=== PATIENT | female | born 1965 | race Caucasian/White ===

== ENCOUNTER 2020-10-24 09:40 | Day surgery (SDC) | payer MEDICARE ==
[2020-10-24] MEDS ORDERED: Acetaminophen 500 MG TAB ONE (09:44)
[2020-10-24] MEDS ORDERED: diphenhydrAMINE 50 MG/ML VIAL ONE (09:45)
[2020-10-24] MEDS ORDERED: BAMLANIVIMAB 700 MG, ETESEVIMAB 700 MG/20 ML 1,400 MG in Sodium Chloride 0.9% 250 ML 25... IVPB SCH (10:00)
== END 2020-10-24 12:20 | disposition home or self-care (01) ==
LOC: CSHSDC 09:40
PROVIDERS: ATTEND Family Medicine
DX: U07.1 COVID-19 (principal); Z23 Encounter for immunization
CPT/HCPCS: M0239; Q0239; J1200; J7050; Q0245

== ENCOUNTER 2021-02-26 15:25 | Inpatient (IN) | payer MEDICARE ==
[2021-02-26 16:46] LABS: #Eosinphils 0.3 10x3/uL (0.0-0.5); #Monocytes 0.6 10x3/uL (0.0-1.1); #Neutrophils 4.7 10x3/uL (1.5-8.4); %Basophils 0.6 % (0.0-2.0); %Eosinophils 4.3 % (0.0-6.0); %Lymphocytes 17.2 % (18.0-47.0); %Monocytes 8.3 % (0.0-10.0); %Neutrophils 69.5 % (40.0-75.0); Hemoglobin 9.3 g/dL (12.0-15.5); Mean Corpuscular HGB CONC 33.2 g/dL (32.0-36.0); Mean Corpuscular Hemoglobin 31.7 pg (27.0-33.0); Mean Corpuscular Volume 95.6 fl (81.6-98.3); Mean Platelet Volume 10.8 fl (7.4-10.4); Platelet Count 218 10x3/uL (150-450); RBC Distribution Width 12.8 % (11.5-14.5); Red Blood Cell (RBC) Count 2.93 10x6/uL (3.90-5.03); White Blood Cell (WBC) Count 6.8 10x3/uL (3.5-10.5)
[2021-02-26 16:47] LABS: PTT 24.8 sec (22.0-33.0); Prothrombin Time 10.8 sec (9.5-12.1)
[2021-02-26 16:52] LABS: ALT (SGPT) 14 U/L (8-55); AST (SGOT) 30 U/L (5-34); Albumin 3.4 g/dL (3.5-5.0); Alkaline Phosphatase 56 U/L (40-110); Anion Gap 13 mmol/L (10-20); BUN (Urea Nitrogen) 19 mg/dL (9.8-20.1); Bilirubin, Total 0.3 mg/dL (0.2-1.2); Calc. Creatinine Clearance 0 mL/min (70-130); Carbon Dioxide 27 mmol/L (22-29); Chloride 95 mmol/L (98-107); Globulin 4.3 g/dL (2.4-3.5); Glucose 529 mg/dL (70-105); Potassium 4.3 mmol/L (3.5-5.1); Protein, Total 7.7 g/dL (6.0-8.3); Sodium 131 mmol/L (136-145)
[2021-02-26 17:07] LABS: Bilirubin Neg (Negative); Blood, Urine 25 (Negative); Clarity Cloudy (Clear); Glucose, Urine (Dipstick) >=1000 mg/dL (Negative); Ketone, Urine Negative (Negative); Leukocyte 500 (Negative); Nitrite Negative (Negative); Protein, Urine (Dipstick) 30 mg/dl (Neg-Trace); Urobilinogen Normal mg/dL (Less than 2)
[2021-02-26] MEDS ORDERED: Cefepime 2 GM VIAL ONE ×2 (17:16)
[2021-02-26 17:19] LABS: Bacteria/HPF 4+ HPF (None Seen); RBC/HPF 0-3 HPF (0-3)
[2021-02-26] MEDS ORDERED: Ketorolac Tromethamine 30 MG/ML VIAL ONE (17:26)
[2021-02-26] MEDS ORDERED: Acetaminophen 325 MG TAB PO PRN ×2 (17:58→21:28)
[2021-02-26] MEDS ORDERED: Senokot S 8.6-50 MG TAB PO PRN (17:58)
[2021-02-26] MEDS ORDERED: Insulin Regular 300 UNITS/3 ML VIAL ONE (18:13)
[2021-02-26] MEDS ORDERED: Vancomycin HCl 2 GM, Admixture Fee 1 EACH in Sodium Chloride 0.9% 500 ML IVPB SCH (18:15)
[2021-02-26] MEDS ORDERED: Sodium Chloride 0.9% 1,000 ML IV SCH (19:00)
[2021-02-26] MEDS ORDERED: Vancomycin 1.5 GRAM/300 ML BAG 1.5 GM in Premix Bag 1 BAG IVPB SCH (21:00)
[2021-02-26] MEDS ORDERED: Dextrose 50% Abboject 50 ML SYRINGE SLOW IVP PRN (21:37)
[2021-02-26] MEDS ORDERED: Dextrose 5% in Water 1,000 ML IV PRN (21:37)
[2021-02-26] MEDS ORDERED: Morphine 4 MG/ML VIAL SLOW IVP SCH (22:00)
[2021-02-26] MEDS: Famotidine 20 MG TAB PO SCH (22:47)
[2021-02-26] MEDS: Ondansetron PF 4 MG/2 ML Vial IVP PRN (23:16)
[2021-02-26] MEDS: HumaLOG 300 UNITS/3 ML VIAL SC PRN (23:21)
[2021-02-27] MEDS: DULoxetine 30 MG CAP PO SCH ×2 (01:53→02:22)
[2021-02-27] MEDS: traMADol HCl 50 MG TAB PO PRN ×2 (01:53→02:22)
[2021-02-27 05:17] LABS: Anion Gap 12 mmol/L (10-20); BUN (Urea Nitrogen) 20 mg/dL (9.8-20.1); Calc. Creatinine Clearance 86 mL/min (70-130); Calcium 8.6 mg/dL (7.8-10.44); Carbon Dioxide 26 mmol/L (22-29); Chloride 100 mmol/L (98-107); Glucose 279 mg/dL (70-105); Sodium 134 mmol/L (136-145)
[2021-02-27 05:27] LABS: #Eosinphils 0.3 10x3/uL (0.0-0.5); #Monocytes 0.6 10x3/uL (0.0-1.1); #Neutrophils 3.9 10x3/uL (1.5-8.4); %Basophils 0.5 % (0.0-2.0); %Eosinophils 5.4 % (0.0-6.0); %Lymphocytes 16.4 % (18.0-47.0); %Monocytes 9.5 % (0.0-10.0); %Neutrophils 67.9 % (40.0-75.0); Hemoglobin 8.9 g/dL (12.0-15.5); Mean Corpuscular HGB CONC 33.5 g/dL (32.0-36.0); Mean Corpuscular Volume 95.7 fl (81.6-98.3); Platelet Count 198 10x3/uL (150-450); RBC Distribution Width 12.8 % (11.5-14.5); Red Blood Cell (RBC) Count 2.78 10x6/uL (3.90-5.03); White Blood Cell (WBC) Count 5.8 10x3/uL (3.5-10.5)
[2021-02-27] MEDS: Ondansetron PF 4 MG/2 ML Vial IVP PRN ×3 (05:36→20:21)
[2021-02-27] MEDS: HumaLOG 300 UNITS/3 ML VIAL SC PRN ×3 (06:47→17:54)
[2021-02-27] MEDS ORDERED: Levothyroxine Sodium 50 MCG TAB PO SCH (07:00)
[2021-02-27] MEDS: Enoxaparin Sodium 40 MG/0.4 ML SYRINGE SC SCH (08:28)
[2021-02-27] MEDS: Famotidine 20 MG TAB PO SCH ×2 (08:28→20:21)
[2021-02-27] MEDS: Morphine 4 MG/ML VIAL SLOW IVP PRN ×2 (11:39→20:23)
[2021-02-27 15:05] LABS: Troponin I 0.016 ng/mL (< 0.028)
[2021-02-27] MEDS ORDERED: Cefepime 2 GM in Sodium Chloride 0.9% 100 ML IVPB SCH (17:00)
[2021-02-27 17:30] LABS: SARS-CoV-2 PCR by NAA Not Detected (NotDetected)
[2021-02-27] MEDS ORDERED: Sodium Chloride 0.9% 100 ML ONE (17:50)
[2021-02-27] MEDS ORDERED: VANCOMYCIN 2 GM, Admixture Fee 1 EACH in Sodium Chloride 0.9% 500 ML IVPB SCH (18:00)
[2021-02-27 18:58] LABS: Troponin I 0.017 ng/mL (< 0.028)
[2021-02-27] MEDS ORDERED: Zolpidem Tartrate 5 MG TAB PO PRN (22:48)
[2021-02-28] MEDS: HumaLOG 300 UNITS/3 ML VIAL SC PRN ×3 (00:57→13:14)
[2021-02-28] MEDS: Morphine 4 MG/ML VIAL SLOW IVP PRN ×2 (02:59→09:41)
[2021-02-28] MEDS: Ondansetron PF 4 MG/2 ML Vial IVP PRN ×2 (03:00→09:34)
[2021-02-28 05:24] LABS: #Eosinphils 0.4 10x3/uL (0.0-0.5); #Monocytes 0.4 10x3/uL (0.0-1.1); %Basophils 0.4 % (0.0-2.0); %Eosinophils 6.9 % (0.0-6.0); %Lymphocytes 18.9 % (18.0-47.0); %Monocytes 8.4 % (0.0-10.0); Hemoglobin 9.5 g/dL (12.0-15.5); Mean Corpuscular HGB CONC 32.4 g/dL (32.0-36.0); Mean Corpuscular Hemoglobin 31.5 pg (27.0-33.0); Mean Platelet Volume 10.7 fl (7.4-10.4); Platelet Count 218 10x3/uL (150-450); RBC Distribution Width 12.9 % (11.5-14.5); Red Blood Cell (RBC) Count 3.02 10x6/uL (3.90-5.03); White Blood Cell (WBC) Count 5.2 10x3/uL (3.5-10.5)
[2021-02-28 05:33] LABS: Anion Gap 12 mmol/L (10-20); BUN (Urea Nitrogen) 15 mg/dL (9.8-20.1); Calc. Creatinine Clearance 89 mL/min (70-130); Calcium 9.2 mg/dL (7.8-10.44); Carbon Dioxide 27 mmol/L (22-29); Chloride 102 mmol/L (98-107); Glucose 279 mg/dL (70-105); Iron 72 ug/dL (50-170); Iron Binding Capacity, Total 351 mcg/dL (265-497); Potassium 4.5 mmol/L (3.5-5.1); Sodium 136 mmol/L (136-145)
[2021-02-28] MEDS ORDERED: DULoxetine 30 MG CAP PO SCH (09:00)
[2021-02-28] MEDS ORDERED: FLU VACC QS2021-22(6MOS UP)/PF 60 MCG/0.5 ML SYRINGE IM ONE (09:00)
[2021-02-28] MEDS: traMADol HCl 50 MG TAB PO PRN (09:32)
[2021-02-28] MEDS: Famotidine 20 MG TAB PO SCH (09:32)
[2021-02-28] MEDS: Enoxaparin Sodium 40 MG/0.4 ML SYRINGE SC SCH (09:34)
[2021-02-28 13:41] VITALS: BP 138/67; TEMP 98.5
[2021-02-28 14:34] VITALS: BMI 49.8
[2021-02-28] MEDS ORDERED: Cefepime 1 GM in Sodium Chloride 0.9% 100 ML IVPB SCH (17:00)
[2021-02-28] MEDS ORDERED: VANCOMYCIN 1.75 GM/350 ML BAG 1.75 GM in Premix Bag 1 BAG IVPB SCH (18:00)
== END 2021-02-28 14:30 | disposition home or self-care (01) | DRG 315 ==
LOC: CSHERS 15:25 → CSHTELE 20:04 → OBSVTOIN 20:05 → INTOOBSV 20:05
PROVIDERS: ADMIT Student in an Organized Health Care Education/Training Program; ATTEND Family Medicine
DX: T82.7XXA Infection and inflammatory reaction due to other cardiac and vascular devices, implants and grafts, initial encounter (principal); N39.0 Urinary tract infection, site not specified; N17.9 Acute kidney failure, unspecified; I50.22 Chronic systolic (congestive) heart failure; I13.0 Hypertensive heart and chronic kidney disease with heart failure and stage 1 through stage 4 chronic kidney disease, or unspecified chronic kidney disease; Z68.42 Body mass index [BMI] 45.0-49.9, adult; E87.1 Hypo-osmolality and hyponatremia; Y83.8 Other surgical procedures as the cause of abnormal reaction of the patient, or of later complication, without mention of misadventure at the time of the procedure; Z20.822 Contact with and (suspected) exposure to COVID-19; E66.01 Morbid (severe) obesity due to excess calories; J44.9 Chronic obstructive pulmonary disease, unspecified; E11.22 Type 2 diabetes mellitus with diabetic chronic kidney disease; E11.42 Type 2 diabetes mellitus with diabetic polyneuropathy; E88.09 Other disorders of plasma-protein metabolism, not elsewhere classified; I25.5 Ischemic cardiomyopathy; E11.319 Type 2 diabetes mellitus with unspecified diabetic retinopathy without macular edema; I25.10 Atherosclerotic heart disease of native coronary artery without angina pectoris; M06.9 Rheumatoid arthritis, unspecified; D63.1 Anemia in chronic kidney disease; F41.9 Anxiety disorder, unspecified; N18.30 Chronic kidney disease, stage 3 unspecified; I49.5 Sick sinus syndrome; Z88.6 Allergy status to analgesic agent; Z91.040 Latex allergy status; Z90.49 Acquired absence of other specified parts of digestive tract; Z95.5 Presence of coronary angioplasty implant and graft; Z90.89 Acquired absence of other organs; Z90.710 Acquired absence of both cervix and uterus; Z91.048 Other nonmedicinal substance allergy status; Z79.899 Other long term (current) drug therapy; Z79.4 Long term (current) use of insulin; Z79.82 Long term (current) use of aspirin; Z79.890 Hormone replacement therapy; Z79.02 Long term (current) use of antithrombotics/antiplatelets
CPT/HCPCS: 36415; 36416; 71045; 76770; 80048; 80053; 81003; 81015; 82550; 82728; 83540; 83550; 83605; 83880; 84484; 85025; 85610; 85730; 87040; 87077; 87086; 87186; 93005; 96365; 96367; 96375; J0692; J1650; J1815; J1885; J2270; J2405; J3370; J3490; J7030; J7050; U0003; U0005

== ENCOUNTER 2022-04-28 20:23 | Emergency (ER) | payer MEDICARE, OTHER ==
[~2022-04-28 20:23] MED LIST: Iopamidol 300 61% 100 ML VIAL FS ONE
[2022-04-28 20:56] LABS: #Eosinphils 0.3 10x3/uL (0.0-0.5); #Monocytes 0.4 10x3/uL (0.0-1.1); #Neutrophils 5.3 10x3/uL (1.5-8.4); %Basophils 0.4 % (0.0-2.0); %Eosinophils 4.4 % (0.0-6.0); %Lymphocytes 14.5 % (18.0-47.0); %Monocytes 6.1 % (0.0-10.0); %Neutrophils 74.5 % (40.0-75.0); Mean Corpuscular HGB CONC 32.1 g/dL (32.0-36.0); Mean Corpuscular Hemoglobin 30.1 pg (27.0-33.0); Mean Corpuscular Volume 93.6 fl (81.6-98.3); Mean Platelet Volume 10.2 fl (7.4-10.4); Platelet Count 268 10x3/uL (150-450); RBC Distribution Width 16.7 % (11.5-14.5); Red Blood Cell (RBC) Count 2.99 10x6/uL (3.90-5.03); White Blood Cell (WBC) Count 7.1 10x3/uL (3.5-10.5)
[2022-04-28 21:07] LABS: ALT (SGPT) 17 U/L (8-55); AST (SGOT) 39 U/L (5-34); Albumin 3.7 g/dL (3.5-5.0); Alkaline Phosphatase 59 U/L (40-110); Anion Gap 14 mmol/L (10-20); BUN (Urea Nitrogen) 22 mg/dL (9.8-20.1); Bilirubin, Total 0.4 mg/dL (0.2-1.2); Calc. Creatinine Clearance 0 mL/min (70-130); Calcium 9.3 mg/dL (7.8-10.44); Carbon Dioxide 25 mmol/L (22-29); Chloride 104 mmol/L (98-107); Estimated GFR 43; Glucose 132 mg/dL (70-105); Potassium 4.5 mmol/L (3.5-5.1); Protein, Total 7.7 g/dL (6.0-8.3); Sodium 138 mmol/L (136-145)
[2022-04-28] MEDS ORDERED: Ketorolac Tromethamine 30 MG/ML VIAL ONE (21:11)
== END 2022-04-28 23:00 | disposition home or self-care (01) ==
LOC: CSHERS 20:23
DX: R07.89 Other chest pain (principal); E11.40 Type 2 diabetes mellitus with diabetic neuropathy, unspecified; J44.9 Chronic obstructive pulmonary disease, unspecified; I50.9 Heart failure, unspecified; I25.10 Atherosclerotic heart disease of native coronary artery without angina pectoris
CPT/HCPCS: 71045; 71260; 80053; 84484; 85025; 93005; 96374; J1885; Q9967

== ENCOUNTER 2022-05-18 12:20 | Outpatient (CLI) | payer MEDICARE | END 2022-05-18 12:21 | disposition home or self-care (01) | LOC: CSHWCC 12:20 | PROVIDERS: ATTEND Nurse Practitioner Family | DX: E11.621 Type 2 diabetes mellitus with foot ulcer (principal); L97.421 Non-pressure chronic ulcer of left heel and midfoot limited to breakdown of skin; R60.0 Localized edema | CPT/HCPCS: 97139; G0463; 99204 ==

== ENCOUNTER 2023-09-01 17:41 | Inpatient (IN) | payer MEDICARE ==
[2023-09-01] MEDS ORDERED: Ondansetron PF 4 MG/2 ML Vial ONE (18:10)
[2023-09-01 18:43] LABS: Actual Bicarbonate (HCO3v) 19.2 mEq/L (22-28); Analyzer IN Cardio CS ER; Base Excess -4.9 mEq/L (-2 - +2); Calcium, Ionized (venous) 1.13 mmol/L (1.16-1.32); Chloride (VBG) 104 mmol/L (98-106); Hematocrit-VBG 32 % (36.0-47.0); Hemoglobin (Hb) 10.8 g/dL (11.7-16.0); Potassium (VBG) 4.27 mmol/L (3.70-5.30); Puncture Site Other Site; RapidComm Collect By lab; Sodium 138 mmol/L (133-146)
[2023-09-01 18:47] LABS: #Basophils 0.02 10x3/uL (0.0-0.2); #Eosinphils 0.15 10x3/uL (0.0-0.5); #Monocytes 0.57 10x3/uL (0.0-1.1); #Neutrophils 7.96 10x3/uL (1.5-8.4); %Basophils 0.2 % (0.0-2.0); %Eosinophils 1.5 % (0.0-6.0); %Lymphocytes 11.3 % (18.0-47.0); %Monocytes 5.8 % (0.0-10.0); %Neutrophils 80.9 % (40.0-75.0); Hematocrit 28.6 % (34.9-44.5); Hemoglobin 9.9 g/dL (12.0-15.5); Mean Corpuscular HGB CONC 34.6 g/dL (32.0-36.0); Mean Corpuscular Hemoglobin 31.6 pg (27.0-33.0); Mean Corpuscular Volume 91.4 fL (81.6-98.3); Mean Platelet Volume 11.7 fL (7.4-10.4); Platelet Count 199 10x3/uL (150-450); RBC Distribution Width 13.4 % (11.5-14.5); Red Blood Cell (RBC) Count 3.13 10x6/uL (3.90-5.03); White Blood Cell (WBC) Count 9.8 10x3/uL (3.5-10.5)
[2023-09-01] MEDS ORDERED: NOREPINEPHRINE 8 MG/250 ML-D5W 0 ML ONE (18:56)
[2023-09-01 18:58] LABS: PTT 24.2 sec (22.0-33.0); Prothrombin Time 10.9 sec (9.5-12.1)
[2023-09-01 19:00] LABS: ALT (SGPT) 9 U/L (8-55); AST (SGOT) 26 U/L (5-34); Albumin 2.9 g/dL (3.5-5.0); Alkaline Phosphatase 60 U/L (40-110); Anion Gap 14 mmol/L (10-20); BUN (Urea Nitrogen) 33 mg/dL (9.8-20.1); Bilirubin, Total 0.3 mg/dL (0.2-1.2); Calc. Creatinine Clearance 0 mL/min (70-130); Calcium 9.2 mg/dL (7.8-10.44); Carbon Dioxide 19 mmol/L (22-29); Chloride 106 mmol/L (98-107); Estimated GFR 22; Globulin 4.6 g/dL (2.4-3.5); Glucose 204 mg/dL (70-105); Potassium 4.3 mmol/L (3.5-5.1); Protein, Total 7.5 g/dL (6.0-8.3); Sodium 135 mmol/L (136-145)
[2023-09-01 19:04] LABS: Troponin I Less than 0.010 ng/mL (< 0.028)
[2023-09-01] MEDS ORDERED: fentaNYL 50 mcg/mL 1 mL Vial ONE (19:33)
[2023-09-01] MEDS ORDERED: NOREPINEPHRINE 8 MG/250 ML-D5W 250 ML ONE (19:33)
[2023-09-01 20:44] LABS: Acetaminophen Less than 10 mcg/mL (10.0-30.0); Alcohol Less than 10.0 mg/dL (Less than 10); Salicylate Less than 8.0 mg/dL (15.0-30.0)
[2023-09-01 21:44] LABS: Bilirubin Neg (Negative); Blood, Urine Negative (Negative); Clarity Clear (Clear); Glucose, Urine (Dipstick) >=1000 mg/dL (Negative); Ketone, Urine Negative (Negative); Leukocyte 25 (Negative); Nitrite Negative (Negative); Protein, Urine (Dipstick) 15 mg/dl (Neg-Trace); Urobilinogen Normal mg/dL (Less than 2)
[2023-09-01 21:54] LABS: Amphetamine Not Detected (NotDetected); Barbiturates Screen Not Detected (NotDetected); Benzodiazepine Screen Not Detected (NotDetected); Cocaine Metabolite Screen Not Detected (NotDetected); Methadone Not Detected (NotDetected); Methamphetamine Not Detected (NotDetected); Opiate Screen Not Detected (NotDetected); Oxycodone Screen Not Detected (NotDetected); Phencyclidine (PCP) Not Detected (NotDetected); THC/Cannabinoid Screen Not Detected (NotDetected); Tricyclic Screen Not Detected (NotDetected)
[2023-09-01 22:17] LABS: Bacteria/HPF 2+ HPF (None Seen); CAUTI Indications for Culture Alt mental st,lethar; RBC/HPF 0-3 HPF (0-3); Yeast-Budding 1+ HPF (None Seen)
[2023-09-01 22:19] LABS: Squamous Epithelial 0-3 HPF (0-3)
[2023-09-01 22:20] LABS: Urine Culture Reflex Yes Yes
[2023-09-01] MEDS ORDERED: HumaLOG 300 UNITS/3 ML VIAL SC PRN (23:32)
[2023-09-01] MEDS ORDERED: Dextrose 50% Abboject 50 ML SYRINGE SLOW IVP PRN (23:32)
[2023-09-01] MEDS ORDERED: Glucagon 1 MG/ML KIT IM PRN (23:32)
[2023-09-01] MEDS ORDERED: Dextrose 5% in Water 1,000 ML IV PRN (23:32)
[2023-09-01] MEDS ORDERED: cefTRIAXone (ROCEPHIN) 1 GM VIAL ONE (23:38)
[2023-09-02 00:17] VITALS: BMI 46.3
[2023-09-02] MEDS: Sodium Chloride 0.9% 1,000 ML IV SCH (00:43)
[2023-09-02] MEDS: Ondansetron PF 4 MG/2 ML Vial IVP PRN (02:40)
[2023-09-02 04:13] LABS: #Basophils 0.03 10x3/uL (0.0-0.2); #Eosinphils 0.11 10x3/uL (0.0-0.5); #Monocytes 0.47 10x3/uL (0.0-1.1); #Neutrophils 8.28 10x3/uL (1.5-8.4); %Basophils 0.3 % (0.0-2.0); %Eosinophils 1.1 % (0.0-6.0); %Lymphocytes 8.8 % (18.0-47.0); %Monocytes 4.8 % (0.0-10.0); %Neutrophils 84.8 % (40.0-75.0); Hematocrit 29.9 % (34.9-44.5); Hemoglobin 10.1 g/dL (12.0-15.5); Mean Corpuscular HGB CONC 33.8 g/dL (32.0-36.0); Mean Corpuscular Hemoglobin 31.2 pg (27.0-33.0); Mean Corpuscular Volume 92.3 fL (81.6-98.3); Mean Platelet Volume 11.9 fL (7.4-10.4); Platelet Count 172 10x3/uL (150-450); RBC Distribution Width 13.4 % (11.5-14.5); Red Blood Cell (RBC) Count 3.24 10x6/uL (3.90-5.03); White Blood Cell (WBC) Count 9.8 10x3/uL (3.5-10.5)
[2023-09-02 04:31] LABS: ALT (SGPT) 10 U/L (8-55); AST (SGOT) 27 U/L (5-34); Albumin 2.9 g/dL (3.5-5.0); Alkaline Phosphatase 60 U/L (40-110); Anion Gap 14 mmol/L (10-20); BUN (Urea Nitrogen) 29 mg/dL (9.8-20.1); Bilirubin, Total 0.3 mg/dL (0.2-1.2); Calc. Creatinine Clearance 61 mL/min (70-130); Calcium 9.2 mg/dL (7.8-10.44); Carbon Dioxide 19 mmol/L (22-29); Chloride 107 mmol/L (98-107); Estimated GFR 27; Globulin 4.7 g/dL (2.4-3.5); Glucose 190 mg/dL (70-105); Potassium 4.3 mmol/L (3.5-5.1); Protein, Total 7.6 g/dL (6.0-8.3); Sodium 136 mmol/L (136-145)
[2023-09-02 04:37] LABS: Troponin I 0.013 ng/mL (< 0.028)
[2023-09-02] MEDS: Acetaminophen/Codeine 30-300mg Tablet PO PRN (06:03)
[2023-09-02] MEDS: HumaLOG 300 UNITS/3 ML VIAL SC PRN (08:07)
[2023-09-02] MEDS ORDERED: Famotidine/PF 20 mg/2ml Vial SLOW IVP SCH (09:00)
[2023-09-02] MEDS: Enoxaparin 40 MG (0.4 mL) SYRINGE SC SCH (09:28)
[2023-09-02] MEDS: Gabapentin 100 MG CAP PO SCH ×2 (09:28→21:29)
[2023-09-02] MEDS: TICAGRELOR 90 MG TABLET PO SCH (09:29)
[2023-09-02] MEDS: Levothyroxine Sodium 25 MCG TAB PO SCH (09:29)
[2023-09-02] MEDS: Carvedilol 6.25 MG TAB PO SCH (09:29)
[2023-09-02] MEDS: Aspirin 81 mg Enteric Coated Tablet PO SCH (09:29)
[2023-09-02] MEDS: Nystatin/Triamcinolone Cream 15 GM TUBE TOP SCH (09:30)
[2023-09-02] MEDS: Cephalexin 250 MG CAP PO SCH (11:44)
[2023-09-02] MEDS: Lantus 1000 UNITS/10 ML VIAL SC SCH ×2 (11:44→21:30)
[2023-09-02] MEDS: Rosuvastatin 20 MG TAB PO SCH (21:28)
[2023-09-02] MEDS: DULoxetine 30 MG CAP PO SCH (21:28)
[2023-09-02] MEDS: Baclofen 10 MG TAB PO PRN (21:31)
[2023-09-02] MEDS: Pantoprazole DR 40 MG TAB PO SCH (21:31)
[2023-09-03 05:27] LABS: Anion Gap 13 mmol/L (10-20); BUN (Urea Nitrogen) 28 mg/dL (9.8-20.1); Calc. Creatinine Clearance 66 mL/min (70-130); Calcium 9.3 mg/dL (7.8-10.44); Carbon Dioxide 22 mmol/L (22-29); Chloride 108 mmol/L (98-107); Estimated GFR 30; Glucose 125 mg/dL (70-105); Potassium 4.6 mmol/L (3.5-5.1); Sodium 138 mmol/L (136-145)
[2023-09-03] MEDS: Levothyroxine Sodium 25 MCG TAB PO SCH (06:35)
[2023-09-03 08:51] LABS: Anion Gap 15 mmol/L (10-20); BUN (Urea Nitrogen) 26 mg/dL (9.8-20.1); Calc. Creatinine Clearance 73 mL/min (70-130); Calcium 9.1 mg/dL (7.8-10.44); Carbon Dioxide 16 mmol/L (22-29); Chloride 110 mmol/L (98-107); Estimated GFR 34; Glucose 134 mg/dL (70-105); Potassium 4.7 mmol/L (3.5-5.1); Sodium 136 mmol/L (136-145)
[2023-09-03] MEDS ORDERED: Promethazine HCl 12.5 MG in Sodium Chloride 0.9% 50 ML IVPB PRN (09:59)
[2023-09-03] MEDS: Lactated Ringer's 500 ML IV SCH (10:14)
[2023-09-03] MEDS ORDERED: Docusate 100 MG CAP PO PRN (10:54)
[2023-09-03 16:19] LABS: Anion Gap 12 mmol/L (10-20); BUN (Urea Nitrogen) 24 mg/dL (9.8-20.1); Calc. Creatinine Clearance 78 mL/min (70-130); Carbon Dioxide 22 mmol/L (22-29); Chloride 106 mmol/L (98-107); Estimated GFR 37; Glucose 183 mg/dL (70-105); Potassium 4.9 mmol/L (3.5-5.1); Sodium 135 mmol/L (136-145)
[2023-09-04 04:47] LABS: Anion Gap 13 mmol/L (10-20); BUN (Urea Nitrogen) 20 mg/dL (9.8-20.1); Calc. Creatinine Clearance 82 mL/min (70-130); Calcium 8.9 mg/dL (7.8-10.44); Carbon Dioxide 21 mmol/L (22-29); Chloride 108 mmol/L (98-107); Estimated GFR 39; Glucose 103 mg/dL (70-105); Potassium 4.4 mmol/L (3.5-5.1); Sodium 138 mmol/L (136-145)
[2023-09-04 13:20] VITALS: BP 99/57; TEMP 98.9
== END 2023-09-04 14:40 | disposition home or self-care (01) | DRG 923 ==
LOC: CSHERS 17:41 → CSHTELE 22:46
PROVIDERS: ADMIT Hospitalist; ATTEND Internal Medicine
PROC: 3E033XZ Introduction of Vasopressor into Peripheral Vein, Percutaneous Approach (ICD-10-PCS; principal; 2023-09-01)
DX: T67.5XXA Heat exhaustion, unspecified, initial encounter (principal); I13.0 Hypertensive heart and chronic kidney disease with heart failure and stage 1 through stage 4 chronic kidney disease, or unspecified chronic kidney disease; N17.9 Acute kidney failure, unspecified; N39.0 Urinary tract infection, site not specified; I42.0 Dilated cardiomyopathy; I95.9 Hypotension, unspecified; N18.32 Chronic kidney disease, stage 3b; S82.891A Other fracture of right lower leg, initial encounter for closed fracture; E86.9 Volume depletion, unspecified; E03.9 Hypothyroidism, unspecified; I25.10 Atherosclerotic heart disease of native coronary artery without angina pectoris; I50.9 Heart failure, unspecified; E11.22 Type 2 diabetes mellitus with diabetic chronic kidney disease; Z88.8 Allergy status to other drugs, medicaments and biological substances; Z88.5 Allergy status to narcotic agent; Z79.899 Other long term (current) drug therapy; Z79.4 Long term (current) use of insulin
CPT/HCPCS: 36415; 36416; 70450; 71045; 74177; 80048; 80053; 80306; 80307; 81001; 82140; 82550; 82805; 83605; 83880; 84443; 84484; 85025; 85610; 85730; 86850; 86900; 86901; 87040; 87086; 93005; 94760; J0696; J1650; J1815; J2405; J3010; J7050; J7120